=== PATIENT | female | born 1955 | race Caucasian/White ===

== ENCOUNTER → 2016-10-18 | Outpatient (CLI) | payer OTHER | LOC: BMCIMAGING 08:48 | DX: Z12.31 Encounter for screening mammogram for malignant neoplasm of breast (principal) | CPT/HCPCS: G0202 ==

== ENCOUNTER → 2017-06-12 | Outpatient (CLI) | payer OTHER | LOC: BMCIMAGING 16:00 | PROVIDERS: ATTEND Orthopaedic Surgery | DX: M16.11 Unilateral primary osteoarthritis, right hip (principal) ==

== ENCOUNTER → 2017-07-03 | Outpatient (CLI) | payer OTHER | LOC: FIMAGING 12:36 | PROVIDERS: ATTEND Orthopaedic Surgery | DX: Z01.818 Encounter for other preprocedural examination (principal); M16.11 Unilateral primary osteoarthritis, right hip; M25.451 Effusion, right hip; M17.0 Bilateral primary osteoarthritis of knee; M51.36 Other intervertebral disc degeneration, lumbar region ==

== ENCOUNTER 2017-07-17 08:50 | Inpatient (IN) | payer OTHER ==
--- NOTE | 2017-07-17 06:55 | PDHPUP ---
History & Physical Update H&P update statement: This history and physical update is based on an assessment of the patient which was completed after admission or registration (within 24 hours), but prior to the surgery/procedure.
--- NOTE | 2017-07-17 06:56 | PDIAF ---
- Diagnosis Diagnosis: right hip djd Code Status: Full Code - Medication Management Discharge Medications: Medications to Continue on Transfer Ascorbic Acid [Vitamin C 500 mg (*)] 1,000 mg PO DAILY 06/19/17 [Last Taken Unknown] Aspirin [Aspirin 325 mg (*)] 325 mg PO DAILY 06/19/17 [Last Taken Unknown] Cholecalciferol Vit D3 [Vitamin D3 (*)] 3,000 units PO DAILY 06/19/17 [Last Taken Unknown] Herbals/Supplements -Info Only 1 ea PO DAILY 06/19/17 [Last Taken Unknown] Levothyroxine [Synthroid 100 mcg (*)] 100 mcg PO DAILY06 06/19/17 [Last Taken Unknown] Multivitamins [Multivitamin (*)] 1 each PO DAILY 06/19/17 [Last Taken Unknown] Vitamin B Complex [B Complex] 1 each PO DAILY 06/19/17 [Last Taken Unknown] Discharge Medications: Refer to the Discharge Home Medication list for PRN reason. - Orders Services needed: Physical Therapy Diet Recommendation: no restrictions on diet Diet Texture: Regular Texture Diet Activity/Weight Bearing Restrictions: wbat. rom as tolerated, anterior hip precautions. no soaking or immersion. jesi hose x 2 weeks. aspirin 325 mg po daily for six weeks. seek attn for increasing pain, cp, sob, leg swelling or pain. f/u at two weeks as scheduled - Follow Up Care Current Providers and Referrals: Long Herron MD [Primary Care Provider] -
[~2017-07-17 08:50] MED LIST: ROPIVACAINE 0.2% 80 MG, EPINEPHrine 0.2 MG, KETOROLAC TROMETHAMINE 30 MG, morphINE 10 M... IU ONE; TRANEXAMIC ACID 1,000 MG in NS 100 ML IV ONE
[2017-07-17] MEDS ORDERED: ACETAMINOPHEN 325 MG TAB PO ONE (09:01)
[2017-07-17] MEDS ORDERED: FAMOTIDINE 20 MG TAB PO ONE (09:01)
[2017-07-17] MEDS ORDERED: ceFAZolin 2 GM/SWFI 2 GM/20 ML SYR IVP ONE (09:01)
[2017-07-17] MEDS ORDERED: LIDOCAINE 1% 2 ML INJ ID PRN (09:18)
[2017-07-17] MEDS ORDERED: LR 1,000 ML IV ONE (09:18)
[2017-07-17] MEDS ORDERED: LIDOCAINE 1% 2 ML INJ ONE (09:21)
[2017-07-17] MEDS ORDERED: ceFAZolin 1 GM/5 ML SYR ONE ×2 (11:06→11:17)
[2017-07-17] MEDS ORDERED: MIDAZOLAM 2 MG/2 ML VIAL IVP ONE (11:55)
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
[2017-07-17] MEDS ORDERED: PROPOFOL/EMULSION 500 MG/50 ML BOTTLE IV ONE (12:03)
[2017-07-17] MEDS ORDERED: POLYETHYLENE GLYCOL 3350 17 GM PKT PO PRN (13:49)
[2017-07-17] MEDS ORDERED: MAGNESIUM HYDROXIDE 30 ML UDCUP PO PRN (13:49)
[2017-07-17] MEDS ORDERED: diphenhydrAMINE 25 MG CAP PO PRN (13:49)
[2017-07-17] MEDS ORDERED: DIPHENOXYLATE/ATROPINE LOMOTIL 1 TAB PO PRN (13:49)
[2017-07-17] MEDS ORDERED: TEMAZEPAM 15 MG CAP PO PRN (13:49)
[2017-07-17] MEDS ORDERED: DIAZEPAM 5 MG TAB PO PRN (13:49)
[2017-07-17] MEDS ORDERED: ONDANSETRON DISINTEGRATING 4 MG TAB PO PRN (13:49)
[2017-07-17] MEDS ORDERED: LACTULOSE 20 GM/30 ML UDCUP PO PRN (13:49)
[2017-07-17] MEDS ORDERED: PROMETHAZINE HCL 25 MG/ML INJ IVP PRN (13:49)
[2017-07-17] MEDS ORDERED: PROMETHAZINE HCL 25 MG SUPPR PR PRN (13:49)
[2017-07-17] MEDS ORDERED: BISACODYL 10 MG SUPP PR PRN (13:49)
[2017-07-17] MEDS ORDERED: ONDANSETRON 4 MG/2 ML VIAL IVP PRN ×2 (13:49→13:59)
[2017-07-17] MEDS ORDERED: METOCLOPRAMIDE 10 MG/2 ML VIAL IVP PRN (13:49)
[2017-07-17] MEDS ORDERED: NALOXONE HCL 0.4 MG/ML INJ IVP PRN (13:59)
[2017-07-17] MEDS ORDERED: fentaNYL 100 MCG/2 ML INJ IVP PRN (13:59)
[2017-07-17] MEDS ORDERED: HYDROCODONE/APAP 5/325 TAB PO PRN (13:59)
[2017-07-17] MEDS ORDERED: HYDROmorphONE/DILAUDID 1 MG/ML INJ IVP PRN (13:59)
[2017-07-17] MEDS ORDERED: ACETAMINOPHEN 500 MG TAB PO PRN (13:59)
[2017-07-17] MEDS ORDERED: OXYCODONE/APAP 5/325 TAB PO PRN (13:59)
[2017-07-17] MEDS ORDERED: LR 1,000 ML IV SCH (14:00)
[2017-07-17] MEDS ORDERED: ceFAZolin 2 GM/DEXTROSE 100 ML IV SCH (14:00)
--- NOTE | 2017-07-17 14:00 | POSTANESTH ---
Post Anesthetic Evaluation Cardiovascular Status: Normal, Stable, Similar to Pre-Op Cond Respiratory Status: Normal, Stable, Similar to Pre-op Cond. Level of Consciousness/Mental Status: Can Participate in Eval, Alert and Oriented Pain Control: Adequate, Prn Tx Ordered Nausea/Vomiting Control: Adequate, Prn Tx Ordered Complications Possibly Related to Anesthesia: None Noted
[2017-07-17] MEDS ORDERED: GLYCOPYRROLATE 0.2 MG/1 ML VIAL ONE (14:46)
[2017-07-17] MEDS ORDERED: GLYCOPYRROLATE 0.2 MG/1 ML VIAL IVP ONE (15:00)
[2017-07-17] MEDS: ACETAMINOPHEN 325 MG TAB PO SCH ×2 (17:33→23:17)
[2017-07-17] MEDS: FAMOTIDINE 20 MG TAB PO SCH (20:30)
[2017-07-17] MEDS: ASPIRIN 325 MG TAB PO SCH (20:30)
[2017-07-17] MEDS: ceFAZolin 2 GM/SWFI 2 GM/20 ML SYR IVP SCH (20:31)
[2017-07-17] MEDS: SENNOSIDES/DOCUSATE SODIUM TAB PO SCH (20:31)
[2017-07-18] MEDS: oxyCODONE IR 5 MG TAB PO PRN ×2 (00:04→11:11)
[2017-07-18] MEDS: ceFAZolin 2 GM/SWFI 2 GM/20 ML SYR IVP SCH (04:44)
[2017-07-18] MEDS: ACETAMINOPHEN 325 MG TAB PO SCH ×2 (05:34→11:11)
[2017-07-18] MEDS ORDERED: LEVOTHYROXINE 100 MCG TAB PO SCH (06:00)
--- NOTE | 2017-07-18 06:30 | PDIAF ---
- Diagnosis Diagnosis: right hip djd Code Status: Full Code - Medication Management Discharge Medications: Medications to Continue on Transfer Ascorbic Acid [Vitamin C 500 mg (*)] 1,000 mg PO DAILY 06/19/17 [Last Taken 1 Week Ago ~07/10/17] Aspirin [Aspirin 325 mg (*)] 325 mg PO DAILY 06/19/17 [Last Taken 1 Week Ago ~] Cholecalciferol Vit D3 [Vitamin D3 (*)] 3,000 units PO DAILY 06/19/17 [Last Taken 1 Week Ago ~07/10/17] Herbals/Supplements -Info Only 1 ea PO DAILY 06/19/17 [Last Taken 1 Week Ago ~] Levothyroxine [Synthroid 100 mcg (*)] 100 mcg PO DAILY06 06/19/17 [Last Taken 06:00] Multivitamins [Multivitamin (*)] 1 each PO DAILY 06/19/17 [Last Taken 1 Week Ago ~07/10/17] Vitamin B Complex [B Complex] 1 each PO DAILY 06/19/17 [Last Taken 1 Week Ago ~ 07/10/17] Aspirin [Aspirin 325 mg (*)] 325 mg PO DAILY tab 07/18/17 [Last Taken Unknown] Diazepam [Valium 5 MG (*)] 5 mg PO Q6HRS PRN #40 tab 07/18/17 [Last Taken Unknown] oxyCODONE IR [Oxycodone Ir (*)] 5 - 10 mg PO Q3HRS PRN #70 tab 07/18/17 [Last Taken Unknown] Discharge Medications: Refer to the Discharge Home Medication list for PRN reason. - Orders Services needed: Physical Therapy Diet Recommendation: no restrictions on diet Diet Texture: Regular Texture Diet Activity/Weight Bearing Restrictions: wbat. rom as tolerated, anterior hip precautions. no soaking or immersion. jesi hose x 2 weeks. aspirin 325 mg po daily for six weeks. seek attn for increasing pain, cp, sob, leg swelling or pain. f/u at two weeks as scheduled - Follow Up Care Current Providers and Referrals: Long Herron MD [Primary Care Provider] - Kyle Ha MD [Medical Doctor] -
--- NOTE | 2017-07-18 06:32 | SOAPPROG ---
SOAP Progress Note Assessment/Plan: Assessment: s/p nakul Plan: dvt precautions reviewed wbat d/c after cleared by pt 07/18/17 06:30 Subjective: min pain no cp or sob Objective: Vital Signs Temp Pulse Resp BP Pulse Ox 36.7 C 47 L 17 101/52 L 98 07/18/17 04:00 07/18/17 04:00 07/18/17 04:00 07/18/17 04:00 07/18/17 04:00 Laboratory Results 07/18/17 05:06 07/17/17 07/18/17 07/19/17 05:59 05:59 05:59 Intake Total 3385 Output Total 2100 Balance 1285 dressing intact pf,df,ehl toes warm and pink neg homans jo xrays stable alignemnt no fx or lucency ICD10 Worksheet Patient Problems: Problems Problem Status Onset Hip arthritis Acute - ICD10 Problem Qualifiers (1) Hip arthritis
[2017-07-18] MEDS: ASPIRIN 325 MG TAB PO SCH (08:31)
[2017-07-18] MEDS: FAMOTIDINE 20 MG TAB PO SCH (08:31)
[2017-07-18] MEDS: SENNOSIDES/DOCUSATE SODIUM TAB PO SCH (08:32)
[2017-07-18 08:38] VITALS: BP 93/56; PULSE 50; RESP 16; TEMP 98.4; O2SAT 96
--- NOTE | 2017-07-18 12:30 | ASDISCHSUM ---
Discharge Information Plan Status:Home with No Needs Medically Cleared to Leave: Discharge Date:07/18/2017 12:14 PM CM D/C Disposition:Home, Routine, Self-Care ADT D/C Disposition:Home Health Service Projected Discharge Date:07/18/2017 12:14 PM Transportation at D/C: Discharge Delay Reason: Follow-Up Date:07/18/2017 12:14 PM Discharge Slot: Final Diagnosis: Placement Information Patient Contact Information Contact Name:MARTI Relationship: Address:[address] Work Phone: [facility] Phone: State/Zip Code:[place] [address] Email: Financial Information Financial Class:[facility] Primary Plan Desc:[employer]MO OPEN ACC LOCAL Primary Plan Number:[id number] Secondary Plan Desc: Secondary Plan Number: Assessment Information [facility] CM Progress Note CM Note CM Note Notes: PT rec home/outpatient. Pt declines HHC need, will d/c home and f/u w outpatient PT. No CM d/c needs identified. Date Signed: 07/18/2017 12:29 PM Electronically Signed By:KARO Short Intervention Information
--- NOTE | 2017-07-20 08:59 | GDS ---
[f rep st] DISCHARGE SUMMARY PREOPERATIVE DIAGNOSIS: Right hip degenerative joint disease. DISCHARGE DIAGNOSIS: Right hip degenerative joint disease. PROCEDURE: Right total hip arthroplasty-MAKOplasty/anterior. HISTORY OF PRESENT ILLNESS: The patient is a 61-year-old woman with end-stage arthritis of the right hip. Clinical and radiographic features are consistent with this. She has been set up for elective total hip replacement. HOSPITAL COURSE: The patient was admitted to the hospital floor after uncomplicated total hip arthro plasty. She tolerated the procedure well. There were no subsequent complications. At the time of d ischarge, she is tolerating an oral diet. Pain is well controlled on oral medicines. She is voiding and stooling without difficulty. Dressing is clean, dry, and intact. She has negative Cole's bila terally. X-rays are stable with anatomic alignment. DISCHARGE ACTIVITY: She is weightbearing as tolerated. Anterior hip precautions. Daily dressing ch anges. No soaking or immersion. FOLLOWUP: In 2 weeks. DISCHARGE MEDICATIONS: Valium and oxycodone. /[id number]/MODL
--- NOTE | 2017-07-20 09:04 | GOP ---
[f rep st] OPERATIVE REPORT DATE OF OPERATION: 07/17/2017 SURGEON: Kyle Ha MD PREOPERATIVE DIAGNOSIS: POSTOPERATIVE DIAGNOSIS: PROCEDURE PERFORMED: Right total hip [id number]. FINDINGS: SPECIMENS: To pathology, the femoral head. INDICATIONS: The patient is a 61-year-old woman who has end-stage arthritis to her right hip. Clini vy and radiographic features are consistent with this. Given the persistent nature of her symptoms I have recommended operative intervention with total hip arthroplasty. She understood the risks, jose efits, alternatives, and wished to proceed. Written consent was signed and placed in patient's chart . DESCRIPTION OF PROCEDURE: The patient was identified in the preanesthesia area. The right hip clear ly demarcated as the operative site with indelible marker. She was given 2 g of Ancef intravenously en route to the operative suite. In the OR, spinal anesthetic was placed followed by additional tori tion. She was placed in the supine position. Both lower extremities and pelvis were sterilely prepp ed and draped in usual fashion. Appropriate time-out procedure was carried out. Attention was first turned to the left hemipelvis. A 2 cm incision was made over the ASIS and iliac crest, and 3 pins w ere then placed for the robot pelvic reference array. This was affixed in standard fashion. Attention was then turned to the right hip. An anterior approach was made. Thick subcutaneous flaps were elevated. Dissection was carried out to the fascia over the tensor fascia nicole which was opene d in the origin of its fibers. The tensor was retracted laterally. The underlying vascular structur es were identified, ligated, cauterized and transected. The rectus was elevated off the anterior hip capsule and retractors were placed. A T was made in the capsule and retractors were placed in an in tracapsular position. There was gross bony changes consistent with arthritis. Acetabular reference check point was then placed, a bony wedge was withdrawn from the femoral neck and the femoral head wi thdrawn and sent to pathology. The marginal soft tissue was sharply excised. The bony landmarks wer e entered in the standard fashion into the robot array. In a single stage reaming a 50 mm outer diam eter reamer was placed in an opening angle of 40 degrees and anteversion of 20 degrees to the appropr iate depth. A 50 mm titanium shell was then impacted confirmed to be fully seated and stable and a 3 2 mm inner diameter X3 liner was impacted confirmed to be fully seated as well. Attention was then t urned to the femur. This was delivered to the use of the extension of the table and external rotatio n of the limb. The proximal canal was opened. Serial broaching was carried out to a size 3 stem. T his was confirmed with intraoperative fluoroscopy. The hip was reduced with a 32 mm 0 mm neck length which restored appropriate leg length stability. The trial component was withdrawn and the final 32 mm Biolox head impacted across the cleansed trunnion. The hip was then reduced, copiously irrigated and closed in layers using 0 Vicryl, 2-0 Monocryl, and neris. The margins were instilled with a j oint cocktail of ropivacaine, morphine, Toradol, and epinephrine. Sterile dressing was applied. The patient was awakened, extubated and taken to the recovery in good stable condition. TOTAL TOURNIQUET TIME: None. COMPLICATIONS: None. IMPLANTS: The [place] Tritanium acetabular shell, size 50. Trident X3 0-degree polyethylene insert, 32 mm, Accolate II, 127 degree neck angle hip stem, size 3, biologics Delta ceramic head, 32 mm +0 m m neck length. DISPOSITION: To the recovery room then home. /[id number]/MODL
== END 2017-07-18 12:14 | disposition home or self-care (01) | DRG 470 ==
LOC: F3N 08:50
PROVIDERS: ADMIT Orthopaedic Surgery; ATTEND Orthopaedic Surgery
PROC: 0SR904Z Replacement of Right Hip Joint with Ceramic on Polyethylene Synthetic Substitute, Open Approach (ICD-10-PCS; principal; 2017-07-17 11:15)
DX: M16.11 Unilateral primary osteoarthritis, right hip (principal); E03.9 Hypothyroidism, unspecified; M85.80 Other specified disorders of bone density and structure, unspecified site
CPT/HCPCS: 97161-GP; 97165-GO; J0171; J0690; J1885; J2250; J2405; J2704; J2795

== ENCOUNTER → 2017-08-30 | Outpatient (CLI) | payer OTHER | LOC: BMCIMAGING 09:37 | PROVIDERS: ATTEND Orthopaedic Surgery | DX: Z47.1 Aftercare following joint replacement surgery (principal); Z96.641 Presence of right artificial hip joint ==

== ENCOUNTER → 2017-10-11 | Outpatient (CLI) | payer OTHER | LOC: BMCIMAGING 09:32 | PROVIDERS: ATTEND Orthopaedic Surgery | DX: Z47.1 Aftercare following joint replacement surgery (principal); Z96.641 Presence of right artificial hip joint; M89.8X8 Other specified disorders of bone, other site ==

== ENCOUNTER → 2017-11-01 | Outpatient (CLI) | payer OTHER | LOC: BMCIMAGING 13:27 | PROVIDERS: ATTEND Family Medicine | DX: Z12.31 Encounter for screening mammogram for malignant neoplasm of breast (principal); Z80.3 Family history of malignant neoplasm of breast ==

== ENCOUNTER → 2018-01-08 | Outpatient (CLI) | payer OTHER | LOC: BMCIMAGING 14:51 | PROVIDERS: ATTEND Orthopaedic Surgery | DX: Z47.1 Aftercare following joint replacement surgery (principal); Z96.641 Presence of right artificial hip joint ==

== ENCOUNTER → 2018-07-24 | Outpatient (CLI) | payer OTHER | LOC: BMCIMAGING 10:35 | PROVIDERS: ATTEND Orthopaedic Surgery | DX: Z09 Encounter for follow-up examination after completed treatment for conditions other than malignant neoplasm (principal); Z96.641 Presence of right artificial hip joint ==